=== PATIENT | female | born 1995 | race Caucasian/White ===

== ENCOUNTER 2024-01-01 15:36 | Emergency (ER) | payer OTHER ==
[2024-01-01 16:36] LABS: BASOPHILS % (AUTO) 0.2 %; EOSINOPHILS # (AUTO) 0.1 10^3/uL (0.0-0.7); EOSINOPHILS % (AUTO) 1.7 %; HCT - HEMATOCRIT 37.3 % (37.0-47.0); HGB - HEMOGLOBIN 12.2 g/dL (12.0-16.0); LYMPHOCYTES # (AUTO) 1.4 10^3/uL (1.5-3.5); LYMPHOCYTES % (AUTO) 16.9 %; MEAN CORPUSCULAR HEMOGLOBIN 29.6 pg (27.0-31.0); MEAN CORPUSCULAR HGB CONC 32.7 g/dL (32.0-36.0); MEAN CORPUSCULAR VOLUME 90.5 fL (81.0-99.0); MEAN PLATELET VOLUME 9.4 fL (7.9-10.8); MONOCYTES # (AUTO) 0.5 10^3/uL (0.0-1.0); MONOCYTES % (AUTO) 6.7 %; NEUTROPHILS % (AUTO) 74.3 %; PLT - PLATELET COUNT 225 10^3/uL (130-450); RED BLOOD COUNT 4.12 10^6/uL (4.20-5.40); RED CELL DISTRIBUTION WIDTH 11.9 % (12.0-15.0); WHITE BLOOD COUNT 8.1 x10^3/uL (4.8-10.8)
--- NOTE | 2024-01-01 16:48 | ED Physician Documentation ---
PD HPI ABD PAIN - Stated complaint Stated Complaint: ABD PX - Chief complaint Chief Complaint: Abd Pain - History obtained from History obtained from: Patient - Additional information Additional information: G2, P0 at 7 weeks gestation. She found out she was about 2 weeks ago by home test. She is not desirous of . For the last few days she has had bleeding, heavier than menses with cramps. PD PAST MEDICAL HISTORY - Past Medical History Past Medical History: No Cardiovascular: None Respiratory: None Neuro: None Endocrine/Autoimmune: None GI: None RETURN AGENT: None : None HEENT: None Psych: None Musculoskeletal: None Derm: None - Past Surgical History Past Surgical History: No - Allergies Allergies/Adverse Reactions: Allergies Allergy/AdvReac Type Severity Reaction Status Date / Time No Known Drug Allergies Allergy Verified 01/01/24 16:44 - Social History Does the pt smoke?: No Smoking Status: Never smoker Does the pt drink ETOH?: No Does the pt have substance abuse?: No - Immunizations Immunizations are current?: Yes - POLST Patient has POLST: No PD ED PE NORMAL - Vitals Vital signs reviewed: Yes - General General: Alert and oriented X 3, No acute distress - Abdomen Abdomen: Non tender - Neuro Neuro: Alert and oriented X 3 Results - Vitals Vitals: Vital Signs - 24 hr 01/01/24 01/01/24 15:45 16:53 Temperature 36.8 C Heart Rate 100 69 Respiratory 16 18 Rate Blood Pressure 135/81 H 112/67 O2 Saturation 99 100 Oxygen O2 Source Room air - Labs Labs: Laboratory Tests 01/01/24 01/01/24 01/01/24 16:31 16:31 16:31 WBC 8.1 RBC 4.12 L Hgb 12.2 Hct 37.3 MCV 90.5 MCH 29.6 MCHC 32.7 RDW 11.9 L Plt Count 225 MPV 9.4 Neut # (Auto) 6.0 Lymph # (Auto) 1.4 L Page # (Auto) 0.5 Eos # (Auto) 0.1 Baso # (Auto) 0.0 Absolute Nucleated RBC 0.00 Nucleated RBC % 0.0 Sodium 137 Potassium 3.5 Chloride 103 Carbon Dioxide 27 Anion Gap 7.0 BUN 9 Creatinine 0.7 Estimated GFR (MDRD) 98 Glucose 95 Calcium 9.8 Total Bilirubin 0.3 AST 16 ALT 17 Alkaline Phosphatase 60 Total Protein 7.0 Albumin 4.5 Globulin 2.5 Albumin/Globulin Ratio 1.8 Beta HCG, Quant 26036.8 Blood Type A POSITIVE - Rads (name of study) Per RDMS there is some debris in the uterus but no IUP. Relevant Findings:: Prelim report reviewed PD Medical Decision Making - ED course ED course: CBC is unremarkable as is CMP. Beta-hCG positive at almost 22,000 which is incongruous with the ultrasound read suggesting likely miscarriage. Departure - Departure Disposition: 01 Home, Self Care Clinical Impression: Miscarriage Condition: Good Record reviewed to determine appropriate education?: Yes Instructions: ED Miscarriage Completed Follow-Up: [facility] [Provider Group] - Within 1 week Comments: As discussed, it does look like you probably miscarried as there is no visible intrauterine on the ultrasound. Your labs are still pending on discharge and I will call you if anything needs to be specifically addressed based on that. Return for new or worsening symptoms. Forms: PCP List Discharge Date/Time: 01/01/24 16:58
[2024-01-01 16:50] LABS: ALBUMIN 4.5 g/dL (3.2-5.5); ALBUMIN/GLOBULIN RATIO 1.8 (1.0-2.2); BILIRUBIN,TOTAL 0.3 mg/dL (0.2-1.0); CALCIUM 9.8 mg/dL (8.5-10.3); CREATININE 0.7 mg/dL (0.6-1.3); POTASSIUM 3.5 mmol/L (3.5-4.5)
[2024-01-01 16:57] VITALS: BP 112/67; O2SAT 100
--- NOTE | 2024-01-01 16:57 | Ultrasound Report ---
PROCEDURE: OB 1st Trimester w/TV INDICATIONS: preg vb OUTSIDE/PRIOR DATING DATA: Last menstrual period (LMP): 10/29/2023. LMP-based estimated date of delivery (FADI): 08/04/2024. TECHNIQUE: Real-time scanning was performed of the fetus and maternal pelvic organs, with image documentation. Endovaginal scanning was also performed to better visualize the fetus and maternal ovaries. COMPARISON: None. FINDINGS: Single intrauterine gestational sac contains debris without internal pole or cardiac motion. Left corpus luteum cyst, 1.6 cm IMPRESSION: Intrauterine gestational sac without pole or cardiac motion. Differential possibilities include normal early , blighted old and pseudosac with nonvisualized ectopic Reviewed by: Lane Kebede MD on 01/01/2024 3:55 PM JOELLEN Approved by: Lane Kebede MD on 01/01/2024 3:55 PM JOELLEN Station ID: [id number]
== END 2024-01-01 16:58 | disposition home or self-care (01) ==
LOC: ED 15:36
DX: O03.9 Complete or unspecified spontaneous abortion without complication (principal)
CPT/HCPCS: 36415; 80053; 84702; 85025; 86900; 86901; 99283; 99284